=== PATIENT | male | born 1940 | race Caucasian/White ===

== ENCOUNTER 2016-12-14 17:37 | Inpatient (IN) | payer MEDICARE, OTHER ==
[2016-12-14] VITALS (9 sets, daily range): BP systolic 104–147; BP diastolic 48–82; PULSE 61–66; RESP 13–20; O2SAT 93–98
[~2016-12-14] VITALS: Ht 182.9 cm; Wt 125.8 kg
[~2016-12-14 17:37] MED LIST: ASPI-973 PO; ATOR40TA69 PO; CLOP75TA3 PO; DULO60CA61 PO; FINA5TAB9 PO; FURO40TA4 PO; GABA600T2 PO; INSU100I13 SUBQ; LISI-567 PO; METF1000 PO; METO-272 PO; MORP15TA PO; MORP30CP13 PO; OMEP20CA11 PO; TAMS0.4C98 PO
--- NOTE | 2016-12-14 18:00 | ED.REPORT ---
HPI-Dyspnea / Wheezing Date of Service Dec 14, 2016 ED Provider: Dr. Trent Upton D.O. A 76 year old male with a history of diabetes, hypertension, hyperlipidemia, and diabetic ulcers presents to the ED via EMS with decreased level of consciousness onset today. En route the patient had an O2 sat of 81% on room air , which lucía to 96% on 3 L O2. The patient presents confused with his eyes mostly closed, only minimally awakening to respond to questions. His only complaint at this time is tiredness. Per the patient's he has had similar episodes in the past with no known cause, although he has been seen at the NH for these symptoms. Nursing Notes Stated Complaint: DECREASED LOC Chief Complaint: Respiratory Complaints Nursing Notes Reviewed: Yes Allergies: Coded Allergies: No Known Allergies (Unverified , 01/29/16) Scheduled Aspirin (Aspirin) 81 Mg Tablet 81 MG PO DAILY Atorvastatin Calcium (Atorvastatin Calcium) 40 Mg Tablet 40 MG PO DAILY Clopidogrel Bisulfate (Plavix) 75 Mg Tablet 75 MG PO DAILY Duloxetine (Duloxetine) 60 Mg Capsule.dr 60 MG PO DAILY Finasteride (Finasteride) 5 Mg Tablet 5 MG PO DAILY Furosemide (Furosemide) 40 Mg Tablet 40 MG PO DAILY Gabapentin (Gabapentin) 600 Mg Tablet 600 MG PO TID Insulin Glargine (Lantus U100 Solostar Insulin Pen) 100 Unit/1 Ml Insuln.pen 65 UNIT SUBQ QAM Lisinopril (Lisinopril) 20 Mg Tablet 20 MG PO DAILY Metformin (Glucophage) 1,000 Mg Tablet 1,500 MG PO BID Metoprolol Succinate ER (Metoprolol Succinate ER) 50 Mg Tab.er.24h 50 MG PO DAILY Morphine Sulfate ER (Morphine Sulfate ER) 30 Mg Capsule 30 MG PO Q8H Omeprazole (Omeprazole) 20 Mg Capsule.dr 20 MG PO DAILY Tamsulosin (Flomax) 0.4 Mg Capsule 0.4 MG PO DAILY Scheduled PRN Morphine Sulfate (Morphine Sulfate) 15 Mg Tablet 15 MG PO BID PRN PRN For Pain General Time Seen by MD: 18:00 Chief Complaint Other (Decreased Level of Consciousness) Hx Obtained From: Patient, EMS Unable to Obtain Hx: Patient condition, Mental status Arrived By: Ambulance Sudden in Onset?: No Onset Occurred: 9 - 12 hours ago Symptom Duration: Waxes and wanes Location: : None Severity: Current: No pain currently Severity: Maximum: No pain Associated with: Denies: Fever Relieved by: Supplemental oxygen Recent Healthcare: No recent doctor visit Similar Sx Previous: Yes Past Medical History Past Medical History Diabetes Hypertension Hyperlipidemia Obesity Diabetic ulcers Past Surgical History Atherectomy with drug-coated balloon angioplasty to the 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 Smoking History Former Smoker, Never Smoker Social History Other Social History: Ambulatory Status Independent Review of Systems Unable to Obtain ROS Patient condition, Mental status Physical Exam Initial Vital Signs Vital Signs (First) Date Time Temp Pulse Resp B/P Pulse Ox O2 Delivery O2 Flow Rate FiO2 12/14/16 17:46 37.0 64 20 143/59 98 Room Air 12/14/16 18:00 3 Initial VS: Reviewed Skin: Warm, Dry Psychiatric: Mood/affect normal, Behavior normal Alertness: Positive: Responds to verb stimuli, Sleeping but arousable Eyes closed on exam, will open eyes and answer questions briefly - then seems to fall back asleep Respiratory / Chest: No respiratory distress, No wheezing Diminished Breath Sounds: Positive: Decreased bilateral Nasal cannula in place Cardiovascular: Heart rate NL, Regular rhythm Lower Ext Edema: Positive: Pitting (Bilaterally) Distant heart sounds ENT: Airway patent Mouth: Positive: Mucous membranes dry Neurologic: CN II - XII intact (Grossly) Mental Status: Positive: Confused, Lethargic, Responds to verbal stim, Somnolent No lateralizing neurologic deficits Moves all limbs to command Head / Eyes: Atraumatic, Normocephalic, PERRL Pupils 3mm bilaterally Interpretation & Diagnostics Arterial Blood Gas Report 12/14/2016 - 17:59: pH - 7.394 pCO2 - 41 pO2 - 106.0 pHCO3 - 24.6 cBase(B) - 0.2 Lab Results Interpretation Result Diagram: 12/14/16 1806 12/14/16 180 Test 12/14/16 18:06 12/14/16 19:11 White Blood Count 9.5th/mm3 (3.8-10.1) Red Blood Count 3.49mil/mm3 (4.40-5.80) Hemoglobin 10.0g/dL (13.8-17.2) Hematocrit 32.0% (41.0-50.0) Mean Corpuscular Volume 91.7fL (81-100) Mean Corpuscular Hemoglobin 28.7pg (27.0-35.0) Mean Corpuscular Hemoglobin Concent 31.3% (32.0-37.0) Red Cell Distribution Width 14.6% (12.3-15.4) Platelet Count 288bil/L (150-400) Neutrophils (%) (Auto) 69.4% (40-74) Lymphocytes (%) (Auto) 13.6% (14-46) Monocytes (%) (Auto) 12.2% (4-12) Eosinophils (%) (Auto) 3.9% (0-5) Basophils (%) (Auto) 0.6% (0-3) Sodium Level 136mEq/L (134-144) Potassium Level 5.0mEq/L (3.5-5.2) Chloride Level 99mEq/L (97-108) Carbon Dioxide Level 24mmol/L (18-29) Blood Urea Nitrogen 19mg/dL (8-27) Creatinine 1.03mg/dL (0.76-1.27) Estimat Glomerular Filtration Rate 75mL/min (>59) Glucose Level 111mg/dL (60-99) Lactic Acid Level 1.3mmol/L (0.4-2.0) Calcium Level 8.5mg/dL (8.5-10.1) Total Bilirubin 0.4mg/dL (0.0-1.2) Aspartate Amino Transf (AST/SGOT) 10U/L (0-50) Alanine Aminotransferase (ALT/SGPT) 8U/L (0-44) Alkaline Phosphatase 92U/L (25-160) Troponin T < 0.010ug/L (0.0-0.011) Pro-B-Type Natriuretic Peptide 1962pg/mL (0-486) Total Protein 6.1g/dL (6.4-8.4) Albumin 3.4g/dL (3.4-5.0) Urine Color Dark yellow (YELLOW) Urine Appearance Clear (CLEAR,HAZY) Urine pH 5.5 (5.0-8.0) Urine Specific [place] 1.025 (1.003-1.035) Urine Protein 100mg/dL (NEG,TRACE) Urine Glucose (UA) Negativemg/dL (NEGATIVE) Urine Ketones Negativemg/dL (NEGATIVE) Urine Occult Blood Trace (NEGATIVE) Urine Nitrite Negative (NEGATIVE) Urine Bilirubin Small (NEGATIVE) Urine Urobilinogen 1.0mg/dL (NORMAL) Urine Leukocyte Esterase Negative (NEGATIVE) Urine RBC 0-2/hpf (0-2) Urine WBC 0-5/hpf (0-5) Urine Epithelial Cells None/hpf (NONE-MOD) Urine Crystals None seen (NONE SEEN) Urine Bacteria Few/hpf (NONE-FEW) Urine Hyaline Casts None/lpf (NONE) Urine Granular Casts None seen (NONE SEEN) Urine Waxy Casts None seen (NONE SEEN) Urine Red Blood Cell Casts None seen (NONE SEEN) Urine White Blood Cell Casts None seen (NONE SEEN) Urine Mucus Present (None Seen) Urine Trichomonas None seen (NONE SEEN) Urine Yeast None (NONE SEEN) Urinalysis Comment None Urine Culture Reflexed Not indicated ECG Interpretation ECG Interpretation: Sinus rhythm rate 62 Probable left atrial enlargement Anterior infarct, old Time: 19:39 Interpreted by: ED physician X-Ray Chest Interpretation Chest Xray Interpretation: IMPRESSION: Moderate multifocal pneumonia. Dictated by: Judy Ramon M.D. on 12/14/2016 at 18:03 View: Portable, 1 view Interpretation / Wet Read by: Interpret - Radiologist CT Head Interpretation IMPRESSION: No acute intracranial abnormality. Dictated by: Judy Ramon M.D. on 12/14/2016 at 18:31 Study: Head CT no contrast Interpretation / Wet Read by: Interpret - Radiologist Re-Eval/Medical Decision Med Decision/Clinical Course 76-year-old male presents somnolent with mild respiratory distress. He is found to have multifocal pneumonia. He would fall asleep in mid conversation. With sternal rub he wake up and answer questions and look around. No focality to his neurologic exam. CT brain did not show anything. Laboratory work was reassuring. His blood gas is reassuring. X-ray shows multifocal pneumonia. I am not sure why he is so lethargic. He does not have a headache or stiff necks and meningitis seems less likely. Flu swab was negative. He will be admitted for broad-spectrum antibiotics. Initially I thought that he was coming from a health care facility so therefore we start with [facility]. I was wrong. His states is coming from home so he will be treated with community-acquired ammonia antibiotics. Further workup for the altered mental status. He was oxygenating ventilating well. He is protecting his airway. Intubation did not seem to be medically indicated Source of Hx: Old records Re-Evaluation/Progress : Time of Eval: 20:26 Patient Status: Condition improved Re-Evaluation/Progress Note: Discussed patient's case with his . Discussed with patient and his x-ray, CT, and lab results, diagnosis, and plan for admit. Patient and his agree with plan for care and all questions were addressed. Consultation : Referral / Consult Name: Balaji Eubanks MD Consulted With: Hospitalist Call Returned at: 19:00 Picker Operator: Agrees with eval, Agrees with plan, Accepts admit Counseled Regarding: Diagnosis, Lab results, Need for admission Discharge & Departure Shift Change Sign-Out Response to Therapy: Improved Impression: Primary Impression: Pneumonia Pneumonia type: due to unspecified organism Laterality: bilateral Lung location: unspecified part of lung Qualified Code: J18.9 - Pneumonia, unspecified organism Additional Impression: Altered mental status Altered mental status type: somnolence Qualified Code: R40.0 - Somnolence Disposition: ADMITTED TO HOSPITAL Discharge Condition All VS Reviewed: Yes Condition: Stable Referrals: Ron Turner DO (PCP) Jennifer Attestation Portions of this note were transcribed by Yuli Wharton. I, Dr. Upton, personally performed the history, physical exam, and medical decision-making; I reviewed and confirmed the accuracy of the information in the transcribed note. Signed by: Jennifer Arango, 12/14/2016, 21:51 copies to: Ron Turner Todd P DO Dec 14, 2016 18:00 YULI WHARTON Dec 14, 2016 18:15
[2016-12-14] MEDS ORDERED: Naloxone 0.4 mg/mL 10 mL Inj IVPUSH PRN (18:05)
--- NOTE | 2016-12-14 18:05 | DRSVH ---
PROCEDURE: X-RAY CHEST ONE VIEW, PORTABLE ([id number]) INDICATIONS: SHORT OF BREATH TECHNIQUE: One view of the chest was acquired. COMPARISON: None. FINDINGS: Surgical changes and devices: None. Lungs and pleura: No pleural effusions or pneumothorax. There is moderate multifocal patchy airspace opacity, worst in the bilateral bases and right upper lung. Mediastinum: Mediastinal contours appear normal. Heart size is normal. Bones and chest wall: No suspicious bony lesions. Overlying soft tissues appear unremarkable. IMPRESSION: Moderate multifocal pneumonia. Dictated by: Judy Ramon M.D. on 12/14/2016 at 18:03 Approved by: Judy Ramon M.D. on 12/14/2016 at 18:03
--- NOTE | 2016-12-14 18:09 | ABG ---
DateTimeAnalyzed 18:04:00 -_ pH ____7.394 - 7.350 7.450 pCO2 ___41.1__ -mmHg 35.0 45.0 pO2 106 -mmHg 69.0 116 HCO3- ___24.6__ -mmol/L 22.0 26.0 ABE ____0.2__ -mmol/L -2.0 2.0 tHb ____9.9__ -g/dL O2Hb ___94.9__ -% COHb ____1.5__ -% MetHb ____1.2__ -% sO2 ___97.5__ -% 25.0 FIO2 ___34.0__ -% Drawn By RC - Date/Time Notified____ 18:09:00 -_ Spontaneous_RR ___18.0__ -b/min Liter_Flow ____4.0__ -L/min Oxygen Device 1 __CANNULA - Notified By RC - Notified Whom _BROWNELL - B 743 -mmHg tO2 ___13.3__ -Vol% Mitch test _Positive -
[2016-12-14] MEDS ORDERED: Piperacillin-Tazo 3.375 Gm Inj 3.375 GM in Dextrose 5% Minibag Plus 50 ML IV ONE (18:10)
[2016-12-14 18:25] LABS: BASOPHILS % (AUTO) 0.6 % (0-3); EOSINOPHILS % (AUTO) 3.9 % (0-5); MONOCYTES % (AUTO) 12.2 % (4-12); Mean Corpuscular Hemoglobin 28.7 pg (27.0-35.0); Mean Corpuscular Volume 91.7 fL (81-100); NEUTROPHILS % (AUTO) 69.4 % (40-74); Platelet Count 288 bil/L (150-400)
--- NOTE | 2016-12-14 18:33 | DRSVH ---
PROCEDURE: CT BRAIN WITHOUT CONTRAST ([id number]) INDICATIONS: altered mental status TECHNIQUE: Noncontrast 4.5 mm thick angled axial sections acquired from the foramen magnum to the vertex, with c oronal reformats. COMPARISON: None. FINDINGS: Image quality: Excellent. CSF spaces: Basal cisterns are patent. No extra-axial fluid collections. The ventricles are symmet javi in size and shape. Brain: No intracranial bleeds or masses. There is cerebral volume loss for age, with resultant vent ricular and sulcal prominence. There are periventricular and deep white matter chronic small vessel ischemic changes. There is intracranial internal carotid artery atherosclerosis. Skull and face: Calvarium and visualized facial bones appear intact, without suspicious lesions. Sinuses: Visualized sinuses and mastoids are clear. IMPRESSION: No acute intracranial abnormality. Dictated by: Judy Ramon M.D. on 12/14/2016 at 18:31 Approved by: Judy Ramon M.D. on 12/14/2016 at 18:31
[2016-12-14] MEDS ORDERED: Lidocaine 2% 6mL Topical Jelly ONE (18:38)
[2016-12-14 18:45] LABS: TROPONIN T < 0.010 ug/L (0.0-0.011)
[2016-12-14] MEDS: 0.9% Sodium Chloride 1,000 ML IV SCH ×2 (18:57→19:18)
[2016-12-14] MEDS: Sodium Chloride LOK Flush 10 mL Syringe IVFLUSH SCH (19:00)
[2016-12-14 19:55] LABS: APPEARANCE,URINE CLEAR (CLEAR,HAZY); COLOR,URINE DARK YELLOW (YELLOW); OCCULT BLOOD,URINE TRACE (NEGATIVE); PH,URINE 5.5 (5.0-8.0)
[2016-12-14] MEDS ORDERED: 0.9% Sodium Chloride 1,000 ML IV SCH (20:13)
[2016-12-14] MEDS ORDERED: Alum-Mag Hydrox-Simeth 30 mL Suspension PO PRN (20:15)
[2016-12-14] MEDS ORDERED: Vancomycin Dose per Pharmacist XX SCH (20:15)
--- NOTE | 2016-12-14 20:31 | PCM.HPMED ---
Subjective Date of Service Dec 14, 2016 Primary Provider: Admitting Physician: Balaji Eubanks MD Primary Care Physician: Ron Turner DO Attending Physician: Balaji Eubanks MD Chief Complaint: Altered mental status HISTORY was OBTAINED FROM / [facility] NOTES History of present illness 76-year-old male, with somnolence, brought in by EMS , En route the patient had an O2 sat of 81% on room air, which lucía to 96% on 3 L O2, in the ER, hemodynamically stable, crackles wheeze on chest exam and somnolence improved with Narcan administration. Patient had been compliant with nurse and ER. By the time he reached PCU patient was attempting to crawl out of bed and needed to be reviewed direct did constantly by MORGUE ATTENDANT and during my brief exam. Chest x-ray in ER demonstrates multifocal pneumonia right greater than left. indicates that he seems to have hyperphagia and eats too much and cannot cough up his food. Patient was administer Zosyn since he was thought to have come from a long term facility. Then his came and explained that he has from home. Antibiotics were changed to Rocephin and azithromycin. Per he uses morphine for chronic back pain and for diabetic peripheral neuropathy. He never tells her exact doses of morphine nor does she go to [facility]. Review of Systems / FAMILY HX- unable to assess because of altered mental status difficult to redirect constantly trying to get out of bed SOCIAL HX he has been putting Kimberlee's in his morning coffee has noticed bottle is depleted more than expected MEDICATIONS Aspirin (Aspirin) 81 Mg Tablet 81 MG PO DAILY Atorvastatin Calcium (Atorvastatin Calcium) 40 Mg Tablet 40 MG PO DAILY Clopidogrel Bisulfate (Plavix) 75 Mg Tablet 75 MG PO DAILY Duloxetine (Duloxetine) 60 Mg Capsule.dr 60 MG PO DAILY Finasteride (Finasteride) 5 Mg Tablet 5 MG PO DAILY Furosemide (Furosemide) 40 Mg Tablet 40 MG PO DAILY Gabapentin (Gabapentin) 600 Mg Tablet 600 MG PO TID Insulin Glargine (Lantus U100 Solostar Insulin Pen) 100 Unit/1 Ml Insuln.pen 65 UNIT SUBQ QAM Lisinopril (Lisinopril) 20 Mg Tablet 20 MG PO DAILY Metformin (Glucophage) 1,000 Mg Tablet 1,500 MG PO BID Metoprolol Succinate ER (Metoprolol Succinate ER) 50 Mg Tab.er.24h 50 MG PO DAILY Morphine Sulfate ER (Morphine Sulfate ER) 30 Mg Capsule 30 MG PO Q8H Omeprazole (Omeprazole) 20 Mg Capsule.dr 20 MG PO DAILY Tamsulosin (Flomax) 0.4 Mg Capsule 0.4 MG PO DAILY Scheduled PRN Morphine Sulfate (Morphine Sulfate) 15 Mg Tablet 15 MG PO BID PRN PRN For Pain Past Medical History Allergies Coded Allergies: No Known Allergies (Unverified , 01/29/16) PMH Social History Hx Alcohol Use: No Hx Substance Use: No Smoking Status: Never Smoker Exam Vital Signs Vital Sign - Last Date Time Temp Pulse Resp B/P Pulse Ox O2 Delivery O2 Flow Rate FiO2 12/14/16 19:49 63 13 145/48 97 Nasal Cannula 3 12/14/16 17:46 37.0 Lab and Diagnostics Labs Exam on admission 3-4L O3 NAD awake no dysarthria, follow some comands, attempting to climb out of bed despite RN instructing him repeatedly to not do so NC/AT no icterus no injected eyes EOMI PERRL /no pharyngeal lesions/ no oral lesions / hearing intact / no facial droop Supple neck diminshed CTAB equal chest rise / no accessory muscle use / speaks in full sentences / no rrw RRR S1 S2 / no mrg / 2+ radial pulses Soft nt nd + BS no hepatosplenomegaly No edema no cyanosis no ecchymosis of lower extremities No rash / no jaundice RODRIGUEZ EKG SR [address] changes Influenza negative A1c 7. 02/02/2016 BNP 1962 DateTimeAnalyzed 18:04:00 -_ pH ____7.394 - 7.350 7.450 pCO2 ___41.1__ -mmHg 35.0 45.0 pO2 106 -mmHg 69.0 116 HCO3- ___24.6__ -mmol/L 22.0 26.0 ABE ____0.2__ -mmol/L -2.0 2.0 tHb ____9.9__ -g/dL O2Hb ___94.9__ -% COHb ____1.5__ -% MetHb ____1.2__ -% sO2 ___97.5__ -% 25.0 FIO2 ___34.0__ -% Drawn By RC - Date/Time Notified____ 18:09:00 -_ Spontaneous_RR ___18.0__ -b/min Liter_Flow ____4.0__ -L/min Oxygen Device 1 __CANNULA - Notified By RC - Notified Whom _BROWNELL - B 743 -mmHg tO2 ___13.3__ -Vol% Mitch test _Positive - PROCEDURE: X-RAY CHEST ONE VIEW, PORTABLE ([id number]) INDICATIONS: SHORT OF BREATH TECHNIQUE: One view of the chest was acquired. COMPARISON: None. FINDINGS: Surgical changes and devices: None. Lungs and pleura: No pleural effusions or pneumothorax. There is moderate multifocal patchy airspace opacity, worst in the bilateral bases and right upper lung. Mediastinum: Mediastinal contours appear normal. Heart size is normal. Bones and chest wall: No suspicious bony lesions. Overlying soft tissues appear unremarkable. IMPRESSION: Moderate multifocal pneumonia. PROCEDURE: CT BRAIN WITHOUT CONTRAST ([id number]) INDICATIONS: altered mental status TECHNIQUE: Noncontrast 4.5 mm thick angled axial sections acquired from the foramen magnum to the vertex, with coronal reformats. COMPARISON: None. FINDINGS: Image quality: Excellent. CSF spaces: Basal cisterns are patent. No extra-axial fluid collections. The ventricles are symmetric in size and shape. Brain: No intracranial bleeds or masses. There is cerebral volume loss for age , with resultant ventricular and sulcal prominence. There are periventricular and deep white matter chronic small vessel ischemic changes. There is intracranial internal carotid artery atherosclerosis. Skull and face: Calvarium and visualized facial bones appear intact, without suspicious lesions. Sinuses: Visualized sinuses and mastoids are clear. IMPRESSION: No acute intracranial abnormality. 2015 echo left ventricular wall thickness is mildly increased. Left ventricular systolic function is mildly reduced. The ejection fraction is estimated to be 45-50%. There is a large sized apical, septal, and anteroseptal wall motion abnormality with hypokinesis to akinesis of the segments. Assessment of diastolic parameters indicates a relaxation abnormality of the left ventricle, consistent with normal filling pressures. The right ventricle is normal in size and function. The right ventricular systolic pressure is estimated at 38 mmHg assuming a right atrial pressure of 3 mm Hg. The left atrial size is normal. Right atrial size is normal. There is no significant valvular heart disease. The ascending aorta is mildly enlarged. Result Diagram: 12/14/16180512/14/161805 Assessment & Plan Active issues and reason for admission 76-year-old male with multifocal pneumonia, right greater than left, intermittent altered mental status. Solu-Medrol DuoNeb's rocphine azithromycin Negative influenza, Pending viral PCR/sputum culture/blood culture -- Pending speech and swallow eval, Intermittent confusion, contributory ETOH/narcotic --thiamine replete now, --pending b12 vit d RPR TSH NH3 --per , [facility] --consider MRI, head CT neg acute findings --restraints Systolic CHF --I/O, urine output, weights --elevated BNP, mildly elevated creatinine from baseline --IV fluids 75 per hour, banana bag --Hold Lasix and lisinopril --Continue Toprol --Serial troponin, consider echo if persistent hypoxia despite current pneumonia management, Chronic issues known prior to admission, present on admission DM, low blood glucose in romero --hold lantus, sliding scale insulin, monitor in the setting of Solu-Medrol BPH --packer placed in ER, resume home BPH medications prior to removal of packer PTSD -- ? duloxetine, pending last [facility] notes/[facility] GERD --hold home medications until swallow evaluation Diet dysphagia diabetic DVT prophylaxis lovenox Code full Disposition inpatient. Assessment and plan were discussed with patient family. Balaji Eubanks MD Dec 14, 2016 20:31
[2016-12-14 21:10] LABS: ICTOTEST,URINE NEGATIVE (Negative)
[2016-12-14] MEDS ORDERED: Thiamine Inj 200 MG in Dextrose 5% 50 ML IV ONE (21:55)
[2016-12-14] MEDS ORDERED: Glucose 40% Oral Gel 15 Gm Tube PO PRN (22:00)
[2016-12-14] MEDS: Insulin LISPRO 300 Unit/3 mL Inj SUBQ SCH (22:00)
[2016-12-14] MEDS: Albuterol-Ipratropium 3 mL Inhalation Solution NEB SCH (22:13)
[2016-12-14] MEDS: MethylprednisoLONE Sodium Succinate 62.5 mg/mL 2 mL Inj IVPUSH SCH (22:51)
[2016-12-15] VITALS (15 sets, daily range): BP systolic 108–174; BP diastolic 53–86; PULSE 56–82; RESP 12–22; O2SAT 92–99
[2016-12-15] MEDS ORDERED: Piperacillin-Tazo 3.375 Gm Inj 3.375 GM in Dextrose 5% Minibag Plus 50 ML IV SCH (00:30)
[2016-12-15] MEDS: MethylprednisoLONE Sodium Succinate 62.5 mg/mL 2 mL Inj IVPUSH SCH ×2 (00:30→09:06)
[2016-12-15] MEDS: Albuterol-Ipratropium 3 mL Inhalation Solution NEB SCH ×6 (00:49→20:22)
[2016-12-15] MEDS ORDERED: Thiamine Inj 100 MG, Folic Acid Inj 1 MG, Magnesium Sulfate 50% Inj 2 GM, Multivitamins... IV ONE ×5 (02:15)
[2016-12-15] MEDS: Insulin Human REGular 300 Unit/3 mL Inj SUBQ SCH ×2 (02:30→08:30)
[2016-12-15 04:07] LABS: Vitamin D, 25-Hydroxy 24.6 ng/mL (30.0-100.0)
--- NOTE | 2016-12-15 04:13 | NUR ---
Admission Pt admitted to [facility] room #2010 from ED 12/14 at approximately 2030. Pt accompanied by ED inventory technician and . Pt obtunded upon arrival to unit. Pt did not rouse to pressured sternal rub and only grimaced to nail bed pressure. After repeated noxious stimuli patient roused but was extremely lethargic and not able to follow commands. Pt slid across to new bed with assist from 4 staff members. MRSA swab and viral nose swab collected as per admitting MD. Pt agitated, trying to get out of bed stating angrily that he has to pee. Tried to reorient patient multiple times without success. Pt placed on soft wrist restraints for safety. Pt on 3L NC. Patent 18G IV in right AC. NS started per MD order. Thiamine administered along with order to change NS to banana bag at 75ml/hour. Blood sugar 75 upon arrival. TELE: SR/SB at 58bpm. [facility]ist. All belongings brought home by patient's . No belongings in the room. Admission assessments completed. Skin clear and slightly reddened to buttocks.
[2016-12-15 07:11] LABS: T3 Uptake 30 % (24-39); Thyroxine (T4) 6.6 ug/dL (4.5-12.0)
[2016-12-15] MEDS ORDERED: Insulin GLARgine 100 Unit/mL Syringe SUBQ SCH (08:00)
[2016-12-15 08:12] LABS: Vitamin B12 299 pg/mL (211-946)
[2016-12-15] MEDS ORDERED: Influenza (Adult) Vaccine 0.5 mL Syringe IM ONE (08:30)
[2016-12-15] MEDS: Sodium Chloride LOK Flush 10 mL Syringe IVFLUSH SCH ×2 (08:30→15:51)
[2016-12-15] MEDS ORDERED: cefTRIAXone Inj 1,000 MG in IV Premix 1 EACH IV SCH (08:30)
[2016-12-15] MEDS ORDERED: Azithromycin Inj 500 MG in Dextrose 5% w/Vial Mate 250 ML IV SCH (08:30)
[2016-12-15] MEDS: MeTOProlol XL 50 mg ER24 Tablet PO SCH (09:06)
[2016-12-15] MEDS: Pantoprazole 20 mg ER24 Tablet PO SCH (09:07)
[2016-12-15] MEDS: DULoxetine 30 mg DR Capsule PO SCH (09:07)
[2016-12-15] MEDS: Insulin LISPRO 300 Unit/3 mL Inj SUBQ SCH ×4 (09:10→20:26)
--- NOTE | 2016-12-15 10:13 | NUR ---
Evaluation completed. Please go to "Notes" then click on "Assessments and Notes" (bottom left corner of screen). Then select appropriate discipline tab on top of screen.
--- NOTE | 2016-12-15 11:41 | PCM.PNMED ---
Subjective Date of Service Dec 15, 2016 Subjective 76-year-old man with history of chronic pain presents with encephalopathy and hypoxia. Patient is breathing comfortably on room air. States that he has no cough or dyspnea. Has multiple complaints about medication adjustments but no other focal somatic symptoms. Exam Vital Signs Vital Sign - Last Date Time Temp Pulse Resp B/P Pulse Ox O2 Delivery O2 Flow Rate FiO2 12/15/16 10:18 78 12/15/16 08:04 16 99 Nasal Cannula 3.00 12/15/16 07:43 37.0 162/79 Intake and Output 12/14/16 12/14/16 12/15/16 Cumulative From/Thru 15:00 23:00 07:00 12/14/16 19:01 - 12/15/16 06:23 Intake Total 2000 ml 922 ml 2922 ml Output Total 510 ml 510 ml Balance 2000 ml 412 ml 2412 ml Intake Oral 0 ml 0 ml IV Total 2000 ml 922 ml 2922 ml Output Urine Total 510 ml 510 ml Exam General: Obese man, talking comfortably at length, no acute distress HEENT: sclerae anicteric, oral mucosa moist Neck: Supple, difficult to assess JVD Chest: Sounds are diminished. Generally clear to auscultation Cardiac: S1S2, no murmur Abdomen: Obese. BS normal, non-tender Extremities: No pitting edema. Atrophic skin changes Neuro: Alert but does not know the date occasionally tangential in speech, cranial nerves symmetric, motor strength 5/5, coordination normal, no tremor IVs and Medications Medications Reviewed: Medications were reviewed in detail Lab and Diagnostics Result Diagram: 12/14/16180512/14/161805 Assessment & Plan Active, acute and/or high-risk problems: # Acute respiratory failure with hypoxia. There are no symptoms of respiratory illness. ABG was unremarkable on admission. Chest x-ray is abnormal with fluffy infiltrates bilaterally including right upper lobe. Differential diagnosis is atypical pulmonary edema versus aspiration pneumonitis. Procalcitonin normal. - Discontinue Solu-Medrol DuoNeb's rocphine azithromycin - Initiate Lasix to target -1-2 L per day - Repeat chest x-ray in a.m. -- Pending speech and swallow eval, consider evaluation for aspiration pneumonitis # Encephalopathy acute. Recent history of Intermittent confusion. Toxic encephalopathy seems likely due to ETOH/narcotic --thiamine replete now, --pending b12 vit d RPR TSH NH3 --per , [facility] -- Follow clinically # opioid dependence. Patient gives history of previous treatment with 60 mg MS Contin 3 times a day and 30 mg immediate release. States he is tapered these over the past year to his current regimen of MS Contin 30 mg twice a day with when necessary immediate release morphine sulfate. Opioid overdose remains primary suspicion for his current encephalopathy, however ABG did not show hypercarbic respiratory failure. He will require some degree of pain meds for pain control and to avoid withdrawal. - Okay to continue MS Contin 30 mg twice a day - IV breakthrough morphine available but try to minimize. # Acute on chronic diastolic, Systolic CHF. Last echocardiogram 10/12 with LVEF 45-50% with focal areas of hypokinesis. Chest x-ray currently looks like atypical pulmonary edema, elevated BNP, mildly elevated creatinine from baseline -- Intravenous Lasix --Continue Toprol --Serial troponin # Chronic pain, spinal DJD, mobility limitation - Continue neuropathic pain meds gabapentin and duloxetine - Physical therapy to assist with ambulation Resolved, stable or Chronic; #DM, low blood glucose in romero -- Resume basal bolus insulin # BPH -- Discontinue Luke # PTSD -- ? duloxetine, pending last [facility] # GERD --hold home medications until swallow evaluation Disposition: With improvement in mental status and apparently no clinical pneumonia he may be ready for discharge 1 days. Pain Evaluation: Pain not Controlled VTE Mechanical Devices: Intermittant Pneumatic CD Time spent 40 minutes spent in patient assessment in care coordination. Chris Elena MD Dec 15, 2016 11:40
[2016-12-15] MEDS ORDERED: Glucose 40% Oral Gel 15 Gm Tube PO PRN (11:45)
[2016-12-15] MEDS: Insulin GLARgine 100 Unit/mL Syringe SUBQ SCH (13:09)
[2016-12-15] MEDS: Furosemide 10 mg/mL 4 mL Inj IVPUSH SCH (15:50)
--- NOTE | 2016-12-15 18:40 | NUR ---
Restraints/oxygen saturation Patient appeared to clear up this morning. He was oriented X3 and able to follow commands. Wrist restraints were discontinued Call light within reach at all times, patient verbalized understanding of the need to remain on bed rest and to call for assist with activities. Patient stated he has physical therapy on outpatient basis MD was made aware and will consider ordering PT evaluation while patient in the hospital. Patient remained on oxygen at 3l NC throughout the shift with oxygen saturation 93-97%. occasionally patient would remove nasal canula to blow his nose and oxygen saturation would dropping to 86-88% ranges without oxygen supplementation. Patient would recover his oxygenation quickly to grater than 92%with oxygen/NC back on- continue assessment.
[2016-12-15] MEDS: Morphine ER 30 mg (MS Contin) Tablet PO SCH (20:25)
[2016-12-15] MEDS ORDERED: 0.9% Sodium Chloride 500 ML ONE (21:26)
[2016-12-16] VITALS (18 sets, daily range): BP systolic 127–182; BP diastolic 64–76; PULSE 65–93; RESP 14–34; O2SAT 91–99
[2016-12-16] MEDS: Sodium Chloride LOK Flush 10 mL Syringe IVFLUSH SCH ×3 (00:20→16:30)
[2016-12-16] MEDS: Albuterol-Ipratropium 3 mL Inhalation Solution NEB SCH ×6 (01:22→23:43)
--- NOTE | 2016-12-16 04:33 | NUR ---
Restful night. Patient rested comfortably in bed throughout the night and reported that he is feeling well. Patient is A/Ox4 but is having intermittent moments of slight memory loss. It seems that the patient is having a hard time finding his words. Patients vitals remained stable throughout the night and he was free of pain.
--- NOTE | 2016-12-16 05:30 | NUR ---
ABD pain and nausea. Patient called me to his room and reports that he was having several abdominal pain and was very nauseated. Patient vomited an approximate 15cc of stomach fluid. Bowel sounds active. Blood pressure slightly elevated in the 160's. Patient denies SOB and C/P. MD Atkinson contacted and orders received for a stat abdominal xray and 8mg of zofran. Patient continued to be monitored. Patient reports feeling better after 8mg of zofran and 1mg of morphine.
[2016-12-16] MEDS ORDERED: Ondansetron 2 mg/mL 2 mL Inj IVPUSH PRN (05:35)
[2016-12-16] MEDS: DULoxetine 30 mg DR Capsule PO SCH (09:33)
[2016-12-16] MEDS: Pantoprazole 20 mg ER24 Tablet PO SCH (09:34)
[2016-12-16] MEDS: MeTOProlol XL 50 mg ER24 Tablet PO SCH (09:34)
[2016-12-16] MEDS: Morphine ER 30 mg (MS Contin) Tablet PO SCH ×2 (09:34→20:30)
[2016-12-16] MEDS: Furosemide 10 mg/mL 4 mL Inj IVPUSH SCH ×2 (09:35→16:50)
[2016-12-16] MEDS: Insulin LISPRO 300 Unit/3 mL Inj SUBQ SCH ×4 (09:39→20:34)
[2016-12-16] MEDS: Insulin GLARgine 100 Unit/mL Syringe SUBQ SCH (09:39)
--- NOTE | 2016-12-16 10:23 | DRSVH ---
PROCEDURE: X-RAY ABDOMEN, ONE VIEW ([id number]) INDICATIONS: SEVERE ABD PAIN TECHNIQUE: One view of the abdomen acquired. COMPARISON: None. FINDINGS: Surgical changes and devices: None. Bowel: Secondary to patient's bilaterally, examination is nondiagnostic. IMPRESSION: Nondiagnostic examination. Dictated by: Juan Baltazar RR Interpreted: Nathalie Victor MD on 12/16/2016 at 10:22 Transcribed by: ROBB on 12/16/2016 at 10:22 Approved by: Nathalie Victor MD, PhD on 12/16/2016 at 16:34
--- NOTE | 2016-12-16 10:32 | NUR ---
Social Work: Initial Assessment D: Per EMR review, pt is a 76 year old male admitted for multi-lobar pneumonia, AMS. P tis Medicare with for Life Supplement; Pt has [facility] benefits but cannot recall what percent service connection he is; Pt does not have LTC insurance. Advanced directives not completed- LOOM TUNER provided information to pt. Readmit score is moderate, 4/8. LOOM TUNER met with pt at bedside. Sw role explained. See initial assessment. Pt lives with his in an apartment in [place]. Pt has elevator access to this unit. Pt states that he primarily uses a wheelchair at baseline and is usually only able to ambulate 10 feet before needing to sit. Pt states he has an electric scooter which he uses when he leave the house. Pt currently working with outpatient PT and is not home bound. Pt has a history at [facility]. Pt is unsure of what his needs will be at discharge and declined to discuss SNF options with LOOM TUNER. LOOM TUNER provided SNF CHOICE LIST for pt's review. Pt currently 2person assistance. PT will need to see pt when appropriate to assess current needs and abilities. A: Pt who is currently 2person assist during hospitalization P: Evolving; LOOM TUNER to continue to follow and assist with dcp as pt's needs emerge and progress. Anticipate pt may require skilled rehab or home health. ALEXX Fregoso Addendum: 12/16/16 at 1038 by DEVIKA BEE Amended: Links added.
[2016-12-16] MEDS ORDERED: MetoCLOpramide 5 mg/mL 2 mL Inj IVPUSH PRN (11:10)
[2016-12-16 11:35] LABS: Mean Corpuscular Hemoglobin 28.4 pg (27.0-35.0)
--- NOTE | 2016-12-16 13:14 | PCM.PNMED ---
Subjective Date of Service Dec 16, 2016 Subjective short of breath, but believes he is improving. He denies fevers chills. He does have a dry cough. He also has leg edema usually wears compression stockings. He has intermittent nausea refractory to Zofran. He also notes a long history of intermittent constipation alternating with diarrhea. No abdominal pain. Exam Vital Signs Vital Sign - Last Date Time Temp Pulse Resp B/P Pulse Ox O2 Delivery O2 Flow Rate FiO2 12/16/16 11:46 89 22 92 Nasal Cannula 4.50 12/16/16 09:57 36.8 149/64 Intake and Output 12/15/16 12/15/16 12/16/16 Cumulative From/Thru 15:00 23:00 07:00 12/14/16 19:01 - 12/16/16 06:33 Intake Total 2772 ml 625 ml 6319 ml Output Total 1250 ml 1700 ml 3460 ml Balance 1522 ml -1075 ml 2859 ml Intake Oral 1500 ml 625 ml 2125 ml IV Total 1272 ml 4194 ml Output Urine Total 1250 ml 1700 ml 3460 ml Exam Oriented 3. The patient is quite coherent. He denies sedations. Normal skull. Anicteric sclerae Neck supple. Lungs are low for diminished breath sounds and expiratory wheezing. Normal effort rate Heart is regular without murmur gallop or rub. Abdomen is distended but nontender. Extremities 2+ edema bilaterally. Good pedal radial pulses. Skin is free of rash or lesions IVs and Medications Medications Reviewed: Medications were reviewed in detail Lab and Diagnostics Result Diagram: 12/16/16 1127 12/16/16 0345 Assessment & Plan Active, acute and/or high-risk problems: # Acute respiratory failure with hypoxia. There are no symptoms of respiratory illness. ABG was unremarkable on admission. Chest x-ray is abnormal with fluffy infiltrates bilaterally including right upper lobe. Differential diagnosis is atypical pulmonary edema versus aspiration pneumonitis. Procalcitonin normal. - Discontinue Solu-Medrol DuoNeb's rocphine azithromycin -Increase Lasix to 80 mg IV every 12 hours from 40. Target any more aggressive diuresis. # Encephalopathy acute. This is improving clinically. He was having prominent hallucinations before and during the first stages of hospitalization. This was in context of his acute heart failure as well as in context of his chronic opiate dependence. # opioid dependence. Patient gives history of previous treatment with 60 mg MS Contin 3 times a day and 30 mg immediate release. States he is tapered these over the past year to his current regimen of MS Contin 30 mg twice a day with when necessary immediate release morphine sulfate. Opioid overdose remains primary suspicion for his current encephalopathy, however ABG did not show hypercarbic respiratory failure. He will require some degree of pain meds for pain control and to avoid withdrawal. - Okay to continue MS Contin 30 mg twice a day - IV breakthrough morphine available but try to minimize. # Acute on chronic diastolic, Systolic CHF. Last echocardiogram 10/12 with LVEF 45-50% with focal areas of hypokinesis. Chest x-ray currently looks like atypical pulmonary edema, elevated BNP, mildly elevated creatinine from baseline -- Intravenous Lasix --Continue Toprol --Serial troponin , will order an echo today to locate interval ventricular function change. He has had a previous echo was notable noted above on September 2015. # Chronic pain, spinal DJD, mobility limitation - Continue neuropathic pain meds gabapentin and duloxetine - Physical therapy to assist with ambulation Resolved, stable or Chronic; #DM, low blood glucose in romero -- Resume basal bolus insulin # BPH -- Discontinue Luke # PTSD -- ? duloxetine, pending [facility]/JAN # GERD --hold home medications until swallow evaluation Disposition: With improvement in mental status and apparently no clinical pneumonia he may be ready for discharge 1 days. Pain Evaluation: Adequate Pain Control VTE Mechanical Devices: Intermittant Pneumatic CD Resuscitation Status: CPR: Attempt Resuscitation Time spent 30 minutes Mitch Kang MD Dec 16, 2016 13:14
[2016-12-16] MEDS ORDERED: hydrALAZINE 20 mg/mL Inj IV PRN (14:30)
--- NOTE | 2016-12-16 17:31 | DRSVH ---
[facility] [address] [place] [address] Echocardiogram Report Name: NADIYA BHAKTA PStudy Date: 11/28 Height: 72 in Hospital Exam Location: [facility] Weight: 304 lb Gender: Male BSA: 2.5 m2 : 1940 Age: 76 yrs BP: 165/76 mmHg Reason For Study: Dyspnea Ordering Physician: HOSPITALIST SVHPerformed By: Papito Mercado Referring Physician: KAREEM DANIELS Interpretation Summary The left ventricle is not well visualized but grossly appears normal in size and wall thickness is probably mildly increased but likely unchanged compared to the previous study. Left ventricular systolic function is mildly reduced with the ejection fraction grossly estimated to be 45-50% with thinning and akinesis of the apical 1/3 of the left ventricle but no other obvious focal wall motion abnormalities and this appears unchanged compared to the previous study. Assessment of diastolic parameters suggests a pseudonormalization pattern, consistent with elevated filling pressures, and is likely significantly higher compared to the previous study. The right ventricle grossly appears normal in size with probable normal systolic function and grossly appears unchanged compared to the previous study. Pulmonary artery pressures cannot be estimated because of the lack of a measurable TR jet velocity but the IVC suggests a high right atrial pressure of 15 mm Hg, likely significantly higher compared to the previous study. The atria are not well visualized. There is no obvious significant valvular heart disease. Procedure: A two-dimensional transthoracic echocardiogram with color flow and Doppler was performed. The study quality was technically difficult. Patient was on respirator and could not perform breathing exercises. A contrast injection of Definity was performed to improve assessment of LV function. Comparison is made with the echocardiogram of 10/27/15. The patient was in normal sinus rhythm during the exam. The heart rate ranged between 86- 101 bpm during the study. Left Ventricle: The left ventricle could not be well visualized and reliably measured in parasternal views. However, grossly it appears normal in size and wall thickness is mildly increased. This is unchanged compared to the previous study. Left ventricular systolic function is mildly reduced. The ejection fraction is estimated to be 45-50%. There is thinning and akinesis of the apical 1/3 of the left ventricle. There are no other obvious focal wall motion abnormalities. This is unchanged compared to the previous study. Assessment of diastolic parameters suggests a pseudonormalization pattern, consistent with elevated filling pressures. This is likely significantly higher compared to the previous study. Right Ventricle: The right ventricle grossly appears normal in size with probable normal systolic function. This is unchanged compared to the previous study. Atria: The left atrium is not well visualized. The left atrium is mildly dilated. Right atrium not well visualized. The right atrium grossly appears normal in size. Mitral Valve: The mitral valve is not well visualized. The mitral valve is grossly normal. There is trace mitral regurgitation. Aortic Valve: The aortic valve is not well visualized. There is mild aortic valve sclerosis. There is no hemodynamically significant valvular aortic stenosis. No aortic regurgitation is present. Tricuspid Valve: The tricuspid valve is not well visualized, but is grossly normal. No tricuspid regurgitation. Pulmonary artery pressures cannot be estimated because of the lack of a measurable TR jet velocity. Pulmonic Valve: The pulmonic valve is not well visualized. There is no significant valvular heart disease. Great Vessels: The aortic root is normal size. The ascending aorta could not be visualized. The pulmonary is not well visualized. The IVC is dilated (diameter is greater than 2.1 cm) and it collapses less than 50% with a sniff. This suggests a high right atrial pressure of 15 mm Hg. This is likely significantly higher compared to the previous study. Pericardium/ Pleura There is no pericardial effusion. There is no pleural effusion. MMode/2D Measurements & Calculations RA long axis: 6.5 cm LVOT diam: 2.6 cm LA A2 area: 24.3 cm Ao root diam: 3.8 cm LA A4 area: 27.8 cm RA area: 19.5 cm LA length (vol): 6.6 cm RA vol: 49.7 ml LA vol: 86.9 ml RA : 19.5 ml/m2 LA vol index: 34.1 ml/m IVC diam: 3.0 cm Doppler Measurements & Calculations Ao V2 max MV E max sal MV E/A: 1.2 MV V2 mean : 188.9 cm/sec : 133.4 cm/sec Med Peak E' Sal : 95.2 cm/sec Ao max PG MV A max sal MV mean PG : 14.3 mmHg : 107.0 cm/sec E/E' med: 28.2 Ao mean PG Lat Peak E' Sal MV V2 VTI MVA(VTI): 3.3 cm2 LVOT Max Sal E/E' lat: 20.8 MV dec time : 122.7 cm/sec E/e' average: 24.5 : 0.19 sec KIMBERLY(I,D): 3.6 cm sev ratio Ao V2 mean LV V1 max PG KIMBERLY indexed to BSA : 143.2 cm/sec (cm^2/m^2): 1.4 Ao V2 VTI: 35.7 cm LV V1 VTI: 23.6 cm KIMBERLY(V,D): 3.5 cm2 Reading Physician:05:31 PM
--- NOTE | 2016-12-16 18:18 | NUR ---
Neuro: Pt able to tell me the date, place and oriented to self, however having frequent bouts of confusion confirmed by . Pt still talking to himself and answering his own questions through the day. Pt impulsive trying to get out of bed even with education. Pt up BSC with 2 person assist. Pt really unsteady on his feet. Pt oriented multiple time. Respiratory: Pt O2 changed intermittently throughout the day to NC and Oxy mask 4.5-8L. Pt denied SOB SpO2 sustaining in the low 90s through the day. Pt SpO2 down intermittently in the high 70s and low 80s with patient removing his O2. Pt needing frequent reorientation.
--- NOTE | 2016-12-16 18:26 | NUR ---
Pt's watch pt's watch putting pressure on patient's wrist, taken off and given to to take home.
--- NOTE | 2016-12-16 19:30 | NUR ---
Funk in mental status. Patient has become much more confused and is difficult to arouse. Patient is only responding to loud verbal or physical stimuli. Patient will open his eyes and look around the room. Patient is not following commands. Patient is moving all extremities and pupils are PERRL. No facial droop noted. Lung sounds are diminished in the bases. Patients vitals are stable but the patients temp is slightly elevated at 37.7. Provided paged and informed of the changes in patients condition. Orders received for a STAT 12 lead EKG, STAT ABG, STAT labs and provider came up to see the patient. Instructed to closely observe the patient and inform her is there are any further changes in the patients condition.
--- NOTE | 2016-12-16 20:39 | ABG ---
DateTimeAnalyzed 20:34:00 -_ pH ____7.391 - 7.350 7.450 pCO2 ___48.4__ -mmHg 35.0 45.0 pO2 ___71.4__ -mmHg 69.0 116 HCO3- ___28.7__ -mmol/L 22.0 26.0 ABE ____3.7__ -mmol/L -2.0 2.0 tHb ___10.0__ -g/dL O2Hb ___91.3__ -% COHb ____1.5__ -% MetHb ____1.3__ -% sO2 ___93.9__ -% 25.0 FIO2 ___21.0__ -% Drawn By MD - Date/Time Notified____ 20:38:00 -_ Liter_Flow ____4.0__ -L/min Oxygen Device 1 __CANNULA - Notified By MD - Notified Whom RN T.MAXIMINO - B 743 -mmHg tO2 ___12.9__ -Vol% OrderingPhysicianInitials sps - Mitch test _Positive -
[2016-12-16 20:40] LABS: BASOPHILS % (AUTO) 0.3 % (0-3); EOSINOPHILS % (AUTO) 0.3 % (0-5); MONOCYTES % (AUTO) 11.9 % (4-12); Mean Corpuscular Hemoglobin 28.1 pg (27.0-35.0); Mean Corpuscular Volume 91.2 fL (81-100); NEUTROPHILS % (AUTO) 76.3 % (40-74); Platelet Count 345 bil/L (150-400)
[2016-12-16 21:24] LABS: TROPONIN T 0.01 ug/L (0.0-0.011)
[2016-12-17] VITALS (11 sets, daily range): BP systolic 109–173; BP diastolic 73–80; PULSE 66–95; RESP 14–21; O2SAT 87–99
[2016-12-17] MEDS: Sodium Chloride LOK Flush 10 mL Syringe IVFLUSH SCH ×3 (00:59→16:21)
[2016-12-17] MEDS: Albuterol-Ipratropium 3 mL Inhalation Solution NEB SCH ×5 (03:11→20:03)
[2016-12-17] MEDS: Insulin LISPRO 300 Unit/3 mL Inj SUBQ SCH ×4 (08:00→20:13)
[2016-12-17 08:25] LABS: BASOPHILS % (AUTO) 0.3 % (0-3); EOSINOPHILS % (AUTO) 2.1 % (0-5); MONOCYTES % (AUTO) 12.2 % (4-12); Mean Corpuscular Hemoglobin 28.5 pg (27.0-35.0); Mean Corpuscular Volume 92.2 fL (81-100); NEUTROPHILS % (AUTO) 71.3 % (40-74); Platelet Count 335 bil/L (150-400)
--- NOTE | 2016-12-17 09:30 | PCM.PNMED ---
Subjective Date of Service Dec 17, 2016 Subjective He denies confusion today. He states his breathing is better. No cough or rhinorrhea. No fevers or chills. He denies any nausea. He is hungry. He is also been constipated with no bowel movement for over 2 days. Exam Vital Signs Vital Sign - Last Date Time Temp Pulse Resp B/P Pulse Ox O2 Delivery O2 Flow Rate FiO2 12/17/16 08:00 81 20 173/73 OxyMask 6.50 12/17/16 03:43 36.5 90 Intake and Output 12/16/16 12/16/16 12/17/16 Cumulative From/Thru 15:00 23:00 07:00 12/14/16 19:01 - 12/17/16 06:36 Intake Total 640 ml 355 ml 7314 ml Output Total 2900 ml 1400 ml 7760 ml Balance -2260 ml -1045 ml -446 ml Intake Oral 640 ml 0 ml 2765 ml IV Total 355 ml 4549 ml Output Urine Total 2800 ml 1400 ml 7660 ml Emesis 100 ml 100 ml Exam Alert oriented 3. Fluent speech. Anicteric sclerae Neck supple. Lungs are clear with good movement. No wheezing. Heart is regular without murmur gallop or rub. Abdomen is distended but nontender. Extremities with 1+ edema good pedal pulses. Skin is free of rash or lesions IVs and Medications Medications Reviewed: Medications were reviewed in detail Lab and Diagnostics Result Diagram: 12/17/16 0800 12/16/162028 Assessment & Plan Active, acute and/or high-risk problems: # Acute respiratory failure with hypoxia. There are no symptoms of respiratory illness. ABG was unremarkable on admission. Chest x-ray is abnormal with fluffy infiltrates bilaterally including right upper lobe. This appears to primarily be pulmonary edema from acute and chronic diastolic heart failure. -Increase Lasix to 80 mg IV every 12 hours from 40. Target any more aggressive diuresis. He is having good diuresis with keep his Lasix at current dosing. # Encephalopathy acute. This is improving clinically. He was having prominent hallucinations before and during the first stages of hospitalization. This was in context of his acute heart failure as well as in context of his chronic opiate dependence. No difficulty with hallucinations or confusion overnight. # opioid dependence. Patient gives history of previous treatment with 60 mg MS Contin 3 times a day and 30 mg immediate release. States he is tapered these over the past year to his current regimen of MS Contin 30 mg twice a day with when necessary immediate release morphine sulfate. Opioid overdose remains primary suspicion for his current encephalopathy, however ABG did not show hypercarbic respiratory failure. He will require some degree of pain meds for pain control and to avoid withdrawal. - Okay to continue MS Contin 30 mg twice a day - IV breakthrough morphine available but try to minimize. # Acute on chronic diastolic, Systolic CHF. Last echocardiogram 10/12 with LVEF 45-50% with focal areas of hypokinesis. Chest x-ray currently looks like atypical pulmonary edema, elevated BNP, mildly elevated creatinine from baseline -- Intravenous Lasix --Continue Toprol --Serial troponin , will order an echo today to locate interval ventricular function change. He has had a previous echo was notable noted above on September 2015. # Chronic pain, spinal DJD, mobility limitation - Continue neuropathic pain meds gabapentin and duloxetine - Physical therapy to assist with ambulation Resolved, stable or Chronic; #DM, low blood glucose in romero -- Resume basal bolus insulin # BPH -- Discontinue Luke # PTSD -- ? duloxetine, pending last [facility] P[facility]/MAR # GERD --hold home medications until swallow evaluation Disposition: With improvement in mental status and apparently no clinical pneumonia he may be ready for discharge 1 days. Pain Evaluation: Adequate Pain Control VTE Mechanical Devices: Intermittant Pneumatic CD Resuscitation Status: CPR: Attempt Resuscitation Time spent 30 minutes Mitch Kang MD Dec 17, 2016 09:30
[2016-12-17] MEDS: MeTOProlol XL 50 mg ER24 Tablet PO SCH (09:39)
[2016-12-17] MEDS: Pantoprazole 20 mg ER24 Tablet PO SCH (09:39)
[2016-12-17] MEDS: DULoxetine 30 mg DR Capsule PO SCH (09:40)
[2016-12-17] MEDS: Morphine ER 30 mg (MS Contin) Tablet PO SCH ×2 (09:42→20:12)
[2016-12-17] MEDS: Furosemide 10 mg/mL 4 mL Inj IVPUSH SCH ×2 (09:43→16:21)
[2016-12-17] MEDS: Insulin GLARgine 100 Unit/mL Syringe SUBQ SCH (09:45)
--- NOTE | 2016-12-17 09:59 | DRSVH ---
PROCEDURE: X-RAY CHEST ONE VIEW, PORTABLE ([id number]) INDICATIONS: cough. TECHNIQUE: One view of the chest was acquired. COMPARISON: [facility], CR, XR CHEST 1VW (PORTABLE), 12/14/2016, 17:40. FINDINGS: Surgical changes and devices: None. Lungs and pleura: Diffuse, widespread bilateral pulmonary interstitial and air space opacities are pr esent no significant change from prior examination. No pleural effusion or pneumothorax. Mediastinum: Mediastinal contours appear normal. Heart size is normal. Bones and chest wall: No suspicious bony lesions. Overlying soft tissues appear unremarkable. IMPRESSION: Pulmonary edema and/or diffuse bilateral inflammatory process. Recommend clinical correl ation. Dictated by: Juan Baltazar RRA Interpreted: Joanne Galvan MD on 12/17/2016 at 9:59 Transcribed by: KAYLEY on 12/17/2016 at 9:59 Approved by: Joanne Galvan M.D. on 12/17/2016 at 15:10
[2016-12-17 10:02] LABS: Magnesium 2.1 mg/dL (1.6-2.6)
--- NOTE | 2016-12-17 14:02 | NUR ---
Social Work: Continued Discharge Planning D: Pt discussed in am rounds. Pt is not medically stable for discharge and is anticipated to be here over the weekend. Per PT evaluation, pt was able to ambulate 50 feet with FWW. Their recommendation is home with 24/7 care. INDUSTRIAL HYGIENE MANAGER spoke with pt's who is in agreement that this is pt's baseline. She is currently in [place] and will not be back until the . She states that the pt's brother, Mehdi Coleman ([phone]), [facility] to stay with the pt at time of discharge. She still has questions about the pt's medical care and is requesting to speak with MD. MD paged and notified of pt's 's request. t/c to pt's brother Mehdi Coleman to confirm that he can be with pt 24/7 until pt's returns on the . No answer. Left message requesting return phone call. states that she would like for pt to have home health. INDUSTRIAL HYGIENE MANAGER reviewed HH choice list with her verbally. She has no preference. Referral provided to [facility], per geographic location. A: Pt who lives at home with his spouse. P: Anticipate discharge home once medically stable, with [facility] for RN, PT. INDUSTRIAL HYGIENE MANAGER to continue to follow ALEXX Fregoso
--- NOTE | 2016-12-17 18:45 | NUR ---
SPO2/mentation/activity Cardiac: Pt denies CP, Tele: SR 70-80s Resp: SpO2 96% on 3L oxymask. Pt desats down to low 80s when he removes O2. Discussed the uses of lasix at length with pt and his brother. GI/: Pt denies n/v/d. Neuro: A&Ox3, Pt much more clear today, reports he does not remember sections of the day yesterday. He had one episode where he was confused and disconnected from tele and his O2 was off. pt reoriented quickly. pt up for meals and up with PT
--- NOTE | 2016-12-17 21:00 | NUR ---
Mentation and constipation. Patient is more alert and answering questions more appropriately today. Patient is alert to person and the year. Patient reports that he is at home. Fall precautions are in place and reorientation was attempted. Vitals are stable and patient is requiring less supplemental O2 to maintain saturations. Patient reports that he feels constipated. Patient has not had a bowel movement for several days. Provider contacted and bowel regiment was ordered for the patient. Patient denies abdominal pain and vomiting. Bowel sounds are active in all quadrants.
[2016-12-17] MEDS ORDERED: Polyethylene Glycol (PEG) 17 Gm Powder PO ONE (22:00)
[2016-12-18] MEDS: Albuterol-Ipratropium 3 mL Inhalation Solution NEB SCH ×3 (00:30→08:07)
[2016-12-18] MEDS: Sodium Chloride LOK Flush 10 mL Syringe IVFLUSH SCH ×2 (00:37→09:48)
[2016-12-18 04:27] VITALS: BP 172/84; PULSE 70; RESP 20; O2SAT 94
[2016-12-18 04:41] VITALS: PULSE 84
[2016-12-18] MEDS: Insulin LISPRO 300 Unit/3 mL Inj SUBQ SCH ×2 (08:00→11:50)
[2016-12-18 08:08] VITALS: PULSE 73; RESP 16; O2SAT 95
[2016-12-18 08:15] VITALS: BP 146/94; PULSE 69; RESP 18; O2SAT 97
[2016-12-18] MEDS: DULoxetine 30 mg DR Capsule PO SCH (09:48)
[2016-12-18] MEDS: MeTOProlol XL 50 mg ER24 Tablet PO SCH (09:48)
[2016-12-18] MEDS: Morphine ER 30 mg (MS Contin) Tablet PO SCH (09:49)
[2016-12-18] MEDS: Pantoprazole 20 mg ER24 Tablet PO SCH (09:49)
[2016-12-18] MEDS: Furosemide 10 mg/mL 4 mL Inj IVPUSH SCH (09:50)
[2016-12-18] MEDS: Insulin GLARgine 100 Unit/mL Syringe SUBQ SCH (09:50)
[2016-12-18 09:56] VITALS: PULSE 97
[2016-12-18 11:40] VITALS: BP 162/82; PULSE 81; RESP 16; O2SAT 87
--- NOTE | 2016-12-18 12:17 | PCM.DIMED ---
Discharge Instructions Date of Service Dec 18, 2016 Dates of Hospitalization Dec 14, 2016 at 19:58 Discharge Diagnosis Discharge Diagnosis 1. Acute systolic heart failure 2. Chronic systolic heart failure 3. Presumed coronary artery disease. 4. Possible pneumonia 5. Encephalopathy, resolved 6. Acute hypoxic respiratory failure 7. Continuous opiate dependence Diet Low fat, Low Sodium, Heart Healthy, Diabetic Activity Limited until seen by PCP Call your provider Fever or Chills, Shortness of breath Patient Instructions Follow up with your primary care doctor within a week. You may benefit from a sleep study and another talk with the regional vice president life sales regarding a possible heart angiogram. Follow-up Provider: Ron Turner DO Follow-up with PCP in: 1 week Mitch Kang MD Dec 18, 2016 12:17
[2016-12-18] MEDS ORDERED: FURO80TA83 PO (12:18)
[2016-12-18] MEDS ORDERED: DOXY100C2 PO (12:19)
--- NOTE | 2016-12-18 12:55 | NUR ---
patient sitting in bed sat 84% room air 3 lpm sat 92-95% without exertion
--- NOTE | 2016-12-18 14:40 | PCM.DC.MED ---
Discharge Summary Date of Service Dec 18, 2016 Dates of Hospitalization Date of Hospital Admission Dec 14, 2016 at 19:58 Date of Discharge: Dec 18, 2016 Providers: Admitting Physician: Balaji Eubanks MD Primary Care Physician: Ron Turner DO Attending Physician: Balaji Eubanks MD Diagnosis at Time of Discharge Diagnosis at Time of Discharge 1. Acute systolic heart failure 2. Chronic systolic heart failure 3. Presumed coronary artery disease. 4. Possible pneumonia 5. Encephalopathy, resolved 6. Acute hypoxic respiratory failure 7. Continuous opiate dependence Consultations None Procedures XRay, CTs & MRIs Chest x-ray indicates mild pulmonary edema, possibly multifocal pneumonia. Rein CT is unremarkable Rommel x-rays unremarkable Cardiac Echo Impression The left ventricle is not well visualized but grossly appears normal in size and wall thickness is probably mildly increased but likely unchanged compared to the previous study. Left ventricular systolic function is mildly reduced with the ejection fraction grossly estimated to be 45-50% with thinning and akinesis of the apical 1/3 of the left ventricle but no other obvious focal wall motion abnormalities and this appears unchanged compared to the previous study. Assessment of diastolic parameters suggests a pseudonormalization pattern, consistent with elevated filling pressures, and is likely significantly higher compared to the previous study. The right ventricle grossly appears normal in size with probable normal systolic function and grossly appears unchanged compared to the previous study. Pulmonary artery pressures cannot be estimated because of the lack of a measurable TR jet velocity but the IVC suggests a high right atrial pressure of 15 mm Hg, likely significantly higher compared to the previous study. The atria are not well visualized. There is no obvious significant valvular heart disease. Brief History Patient presented as per the history of present illness with dyspnea and confusion with hallucinations intermittently for the several days prior to admit. Hospital Course Active, acute and/or high-risk problems: # Acute respiratory failure with hypoxia. There are no symptoms of respiratory illness. ABG was unremarkable on admission. Chest x-ray is abnormal with fluffy infiltrates bilaterally including right upper lobe. This appears to primarily be pulmonary edema from acute and chronic diastolic heart failure. -Increase Lasix to 80 mg IV every 12 hours from 40. Target any more aggressive diuresis. He is having good diuresis with keep his Lasix at current dosing. # Encephalopathy acute. This is improving clinically. He was having prominent hallucinations before and during the first stages of hospitalization. This was in context of his acute heart failure as well as in context of his chronic opiate dependence. No difficulty with hallucinations or confusion overnight. # opioid dependence. Patient gives history of previous treatment with 60 mg MS Contin 3 times a day and 30 mg immediate release. States he is tapered these over the past year to his current regimen of MS Contin 30 mg twice a day with when necessary immediate release morphine sulfate. Opioid overdose remains primary suspicion for his current encephalopathy, however ABG did not show hypercarbic respiratory failure. He will require some degree of pain meds for pain control and to avoid withdrawal. - Okay to continue MS Contin 30 mg twice a day - IV breakthrough morphine available but try to minimize. # Acute on chronic diastolic, Systolic CHF. Last echocardiogram 10/12 with LVEF 45-50% with focal areas of hypokinesis. Chest x-ray currently looks like atypical pulmonary edema, elevated BNP, mildly elevated creatinine from baseline -- Intravenous Lasix --Continue Toprol --Serial troponin , will order an echo today to locate interval ventricular function change. He has had a previous echo was notable noted above on September 2015. # Chronic pain, spinal DJD, mobility limitation - Continue neuropathic pain meds gabapentin and duloxetine - Physical therapy to assist with ambulation Resolved, stable or Chronic; #DM, low blood glucose in romero -- Resume basal bolus insulin # BPH -- Discontinue Luke # PTSD -- ? duloxetine, pending [facility] # GERD --hold home medications until swallow evaluation Disposition: With improvement in mental status and apparently no clinical pneumonia he may be ready for discharge 1 days. Hospital course. He was admitted for confusion. He did have a degree of hypoxia. The patient was initially covered with empiric antibiotics although had no fever, leukocytosis or evidence of infection based on microbiologic testing. The patient did have pulmonary edema. Neck indicated mild systolic dysfunction which is chronic. The patient was diuresed. His mental status did improve and his overall degree of hypoxia also improved. He was able to ambulate and move around readily with physical therapy. On the day of discharge his brother presented and we discussed options for close to an hour. He was thought that the patient would be stable for discharge with ongoing diuresis and home oxygen which would be needed primarily for movement movement as he maintained saturations of 90% or above at rest while being observed on the day of discharge. The patient was enthusiastic about discharge. The situation was discussed briefly over the telephone with his as well. Exam Vital Signs (Last) Date Time Temp Pulse Resp B/P Pulse Ox O2 Delivery O2 Flow Rate FiO2 12/18/16 11:56 Supplement Oxygen 12/18/16 11:40 36.9 81 16 162/82 87 12/18/16 10:24 3.00 Exam Alert oriented 3. Normal mental status. Anicteric sclera Neck is supple. Lungs are clear. Heart is regular without murmur. Abdomen is soft nondistended. Extremities are free of edema. Test 12/14/16 18:06 12/14/16 19:10 12/14/16 19:11 12/14/16 22:13 Hemoglobin A1c 7.1% (4.8-5.6) Vitamin B12 Level 299pg/mL (211-946) Vitamin D 25-Hydroxy 24.6ng/mL (30.0-100.0) Free Thyroxine Index 2.0 (1.2-4.9) Thyroxine (T4) 6.6ug/dL (4.5-12.0) Triiodothyronine (T3) Uptake 30% (24-39) Alcohol, Quantitative < 10mg/dL (0-10) Rapid Plasma Reagin Non reactive (Non Reactive) Urine Legionella pneumophilia Ag Negative (Negative) Urine Color Dark yellow (YELLOW) Urine Appearance Clear (CLEAR,HAZY) Urine pH 5.5 (5.0-8.0) Urine Specific [place] 1.025 (1.003-1.035) Urine Protein 100mg/dL (NEG,TRACE) Urine Glucose (UA) Negativemg/dL (NEGATIVE) Urine Ketones Negativemg/dL (NEGATIVE) Urine Occult Blood Trace (NEGATIVE) Urine Nitrite Negative (NEGATIVE) Urine Bilirubin Small (NEGATIVE) Urine Ictotest Negative (Negative) Urine Urobilinogen 1.0mg/dL (NORMAL) Urine Leukocyte Esterase Negative (NEGATIVE) Urine RBC 0-2/hpf (0-2) Urine WBC 0-5/hpf (0-5) Urine Epithelial Cells None/hpf (NONE-MOD) Urine Crystals None seen (NONE SEEN) Urine Bacteria Few/hpf (NONE-FEW) Urine Hyaline Casts None/lpf (NONE) Urine Granular Casts None seen (NONE SEEN) Urine Waxy Casts None seen (NONE SEEN) Urine Red Blood Cell Casts None seen (NONE SEEN) Urine White Blood Cell Casts None seen (NONE SEEN) Urine Mucus Present (None Seen) Urine Trichomonas None seen (NONE SEEN) Urine Yeast None (NONE SEEN) Urinalysis Comment None Urine Culture Reflexed Not indicated Ammonia 40ug/dL (18-53) Test 12/16/16 20:29 12/17/16 02:40 12/17/16 08:00 Lactic Acid Level 0.9mmol/L (0.4-2.0) Troponin T 0.010ug/L (0.0-0.011) Procalcitonin 0.06ng/mL (See Comment) White Blood Count 9.4th/mm3 (3.8-10.1) Red Blood Count 3.72mil/mm3 (4.40-5.80) Hemoglobin 10.6g/dL (13.8-17.2) Hematocrit 34.3% (41.0-50.0) Mean Corpuscular Volume 92.2fL (81-100) Mean Corpuscular Hemoglobin 28.5pg (27.0-35.0) Mean Corpuscular Hemoglobin Concent 30.9% (32.0-37.0) Red Cell Distribution Width 15.0% (12.3-15.4) Platelet Count 335bil/L (150-400) Neutrophils (%) (Auto) 71.3% (40-74) Lymphocytes (%) (Auto) 13.9% (14-46) Monocytes (%) (Auto) 12.2% (4-12) Eosinophils (%) (Auto) 2.1% (0-5) Basophils (%) (Auto) 0.3% (0-3) Sodium Level 141mEq/L (134-144) Potassium Level 5.0mEq/L (3.5-5.2) Chloride Level 100mEq/L (97-108) Carbon Dioxide Level 27mmol/L (18-29) Blood Urea Nitrogen 25mg/dL (8-27) Creatinine 0.93mg/dL (0.76-1.27) Estimat Glomerular Filtration Rate 84mL/min (>59) Glucose Level 109mg/dL (60-99) Calcium Level 8.9mg/dL (8.5-10.1) Magnesium Level 2.1mg/dL (1.6-2.6) Total Bilirubin 0.7mg/dL (0.0-1.2) Aspartate Amino Transf (AST/SGOT) 13U/L (0-50) Alanine Aminotransferase (ALT/SGPT) 11U/L (0-44) Alkaline Phosphatase 89U/L (25-160) Pro-B-Type Natriuretic Peptide 1901pg/mL (0-486) Total Protein 6.1g/dL (6.4-8.4) Albumin 3.4g/dL (3.4-5.0) Microbiology Results Adult respiratory PCR is negative., Influenza screen is negative. Pneumococcal antigen is negative. Blood cultures 2 are negative. Discharge Medications Discharge Medications Aspirin (Aspirin) 81 Mg Tablet 81 MG PO DAILY (Reported) Atorvastatin Calcium (Atorvastatin Calcium) 40 Mg Tablet 40 MG PO DAILY ( Reported) Clopidogrel Bisulfate (Plavix) 75 Mg Tablet 75 MG PO DAILY (Reported) Doxycycline Hyclate (Doxycycline Hyclate) 100 Mg Capsule 100 MG PO BID Prescribed by: MITCH DANIELS MD Duloxetine (Duloxetine) 60 Mg Capsule.dr 60 MG PO DAILY (Reported) Finasteride (Finasteride) 5 Mg Tablet 5 MG PO DAILY (Reported) Furosemide (Lasix) 80 Mg Tablet 80 MG PO DAILY Prescribed by: MITCH DANIELS MD Gabapentin (Gabapentin) 600 Mg Tablet 600 MG PO TID (Reported) Insulin Glargine (Lantus U100 Solostar Insulin Pen) 100 Unit/1 Ml Insuln.pen 65 UNIT SUBQ QAM (Reported) Lisinopril (Lisinopril) 20 Mg Tablet 20 MG PO DAILY (Reported) Metformin (Glucophage) 1,000 Mg Tablet 1,500 MG PO BID (Reported) Metoprolol Succinate ER (Metoprolol Succinate ER) 50 Mg Tab.er.24h 50 MG PO DAILY (Reported) Morphine Sulfate ER (Morphine Sulfate ER) 30 Mg Capsule 30 MG PO Q8H (Reported) Omeprazole (Omeprazole) 20 Mg Capsule.dr 20 MG PO DAILY (Reported) Tamsulosin (Flomax) 0.4 Mg Capsule 0.4 MG PO DAILY (Reported) Followup Plan Disposition: Home, with brother. [facility] is also [facility] Discharge Diet: Low fat, Low Sodium, Heart Healthy, Diabetic Discharge Activity: Limited until seen by PCP Patient Instructions Follow up with your primary care doctor within a week. You may benefit from a sleep study and another talk with the content specialist regarding a possible heart angiogram. Follow-up Provider: Ron Turner DO Follow-up with PCP in: 1 week Time spent Over 60 minutes Mitch Daniels MD Dec 18, 2016 14:40
--- NOTE | 2016-12-18 14:58 | NUR ---
Social work note - Discharge MANAGER WAREHOUSE identified that Pt is able to dc home today - MANAGER WAREHOUSE met with pt - pt's brother also in the room and is able to stay with him for 24/7 care. Pt denies any needs - wants Home Health - F2F completed. MANAGER WAREHOUSE called and left message with Farshad - faxed [facility] to [facility]. Plan: Home with Family in [facility] for RN PT. TYRA Amin
--- NOTE | 2016-12-18 15:22 | NUR ---
Discharge Pt discharged today at 1525. Pt off floor via wheelchair with all of his belongings minus a gold watch. Pt described watch as gold and having an expandable metal band. Room was searched by GAS CUTTING MACHINE OPERATOR and nurse. Pt was given prescriptions, follow up instructions including recommendations for sleep study and discussion with microsoft net developer regarding angiogram, and ed materials on heart healthy diet, meds and CHF.
== END 2016-12-18 15:25 | disposition home health service (06) | DRG 291 ==
LOC: SED 17:37 → PCC 19:58 → CCU 19:58 → UNDOADMIN 19:58 → PCC 21:00
PROVIDERS: ADMIT Urology; ATTEND Urology
PROC: 4A033B1 Measurement of Arterial Pressure, Peripheral, Percutaneous Approach (ICD-10-PCS; principal; 2016-12-14)
DX: I50.23 Acute on chronic systolic (congestive) heart failure (principal); J18.9 Pneumonia, unspecified organism; J96.01 Acute respiratory failure with hypoxia; G93.40 Encephalopathy, unspecified; F11.20 Opioid dependence, uncomplicated; I25.10 Atherosclerotic heart disease of native coronary artery without angina pectoris; E11.9 Type 2 diabetes mellitus without complications; N40.0 Benign prostatic hyperplasia without lower urinary tract symptoms; K21.9 Gastro-esophageal reflux disease without esophagitis; F43.10 Post-traumatic stress disorder, unspecified; I10 Essential (primary) hypertension; E78.5 Hyperlipidemia, unspecified; G89.29 Other chronic pain; Z28.21 Immunization not carried out because of patient refusal